=== PATIENT | female | born 1935 | race Caucasian/White ===

== ENCOUNTER 2024-01-17 04:01 | Outpatient (CLI) | payer MEDICARE, OTHER ==
[2024-01-17 06:35] LABS: Bilirubin Negative (Negative); Blood, Urine Negative (Negative); Clarity Clear (Clear); Glucose, Urine (Dipstick) Negative (Negative); Ketone, Urine Negative (Negative); Leukocyte Moderate (Negative); Nitrite Positive (Negative); Protein, Urine (Dipstick) Negative (Neg-Trace); Specific Gravity, Urine 1.015 (1.005-1.030); Urobilinogen 0.2 mg/dL (Less than 2)
== END 2024-01-17 04:02 | disposition home or self-care (01) ==
LOC: BURMANOR 04:01
PROVIDERS: ATTEND Family Medicine
CPT/HCPCS: 81003; 87077; 87086; 87186

== ENCOUNTER 2025-01-15 21:06 | Emergency (ER) | payer MEDICARE, MEDICAID ==
[2025-01-15 22:04] LABS: #Basophils 0.2 thou/uL (0.0-0.2); #Eosinophils 0.4 thou/uL (0.0-0.7); #Lymphocytes 1.9 thou/uL (1.20-3.40); #Monocytes 0.7 thou/uL (0.11-0.59); #Neutrophils 6.2 thou/uL (1.40-6.50); %Basophils 1.7 % (0.0-1.0); %Eosinophils 3.9 % (0.0-10.0); %Lymphocytes 20.1 % (21.0-51.0); %Monocytes 7.9 % (0.0-10.0); %Neutrophils 66.4 % (42.0-75.0); Hematocrit 19.3 % (36.0-47.0); Mean Corpuscular Hemoglobin 20.0 pg (27.0-31.0); Mean Corpuscular Volume 67.8 fl (78.0-98.0); Platelet Count 400 10x3/uL (130-400); Red Blood Cell (RBC) Count 2.85 mill/uL (4.20-5.40); White Blood Cell (WBC) Count 9.3 10x3/uL (4.8-10.8)
[2025-01-15 22:05] LABS: Anisocytosis SLIGHT = 6-15 cells (100X) (0-5/hpf); Microcytosis MODERATE=15-30 cells (100X) (0-5/hpf)
[2025-01-15 22:06] LABS: Platelet Adequacy Comment Appears Adequate
[2025-01-15 22:09] LABS: Hemoglobin 5.7 g/dL (12.0-16.0)
[2025-01-15 22:17] LABS: ALT (SGPT) 13 U/L (Less than 34); AST (SGOT) 20 U/L (11-34); Albumin 3.5 g/dL (3.1-4.5); Alkaline Phosphatase 75 U/L (40-110); Anion Gap 14 mmol/L (10-20); BUN (Urea Nitrogen) 25 mg/dL (9.8-20.1); Bilirubin, Total 0.2 mg/dL (0.3-1.2); Calc. Creatinine Clearance 0 mL/min (70-130); Calcium 8.6 mg/dL (7.8-10.44); Carbon Dioxide 23 mmol/L (23-31); Chloride 104 mmol/L (98-107); Globulin 3.2 g/dL (2.4-3.5); Glucose 95 mg/dL (83-110); Potassium 4.3 mmol/L (3.5-5.1); Sodium 137 mmol/L (136-145)
[2025-01-16] MEDS ORDERED: Furosemide 40 MG (4 mL) VIAL ONE (03:58)
== END 2025-01-16 09:22 ==
LOC: BURERS 21:06
DX: D50.9 Iron deficiency anemia, unspecified (principal); K21.9 Gastro-esophageal reflux disease without esophagitis; I48.91 Unspecified atrial fibrillation; I10 Essential (primary) hypertension; Z79.01 Long term (current) use of anticoagulants; Z79.899 Other long term (current) drug therapy
CPT/HCPCS: 36430; 74022; 80053; 85025; 86850; 86900; 86901; 86920; J1940; P9016; 36415; 96374